=== PATIENT | female | born 1975 | race Two or more races ===

== ENCOUNTER → 2024-06-12 | Outpatient (CLI) | payer MEDICAID, SELFPAY ==
--- NOTE | 2024-06-12 | XR_ITS ---
Examination: Esophagram standard Fluoroscopy Upright PA chest single view Upright soft tissue lateral neck single view 27 spot fluoroscopic films of the esophagus Exam date and time: June 12, 2024 0905 hours INDICATIONS: Difficulty swallowing 2 years TECHNIQUE AND FINDINGS: Upright PA chest single view demonstrates normal heart size, lungs are clear Soft tissue lateral neck demonstrates moderate degenerative disc disease C4-C5, C5-C6 with moderate cervical spondylosis Patient swallowed thin barium with 27 spot fluoroscopic films of the esophagus, fluoroscopy 0.10 minute Primary peristaltic esophageal waves are noted Intermittent gastroesophageal reflux Small sliding esophageal hernia. No constricting esophageal lesion No stricture at the gastroesophageal junction IMPRESSION: Mild intermittent gastroesophageal reflux No stricture at the gastroesophageal junction
== END | disposition home or self-care (01) ==
PROVIDERS: PCP Family Medicine; Referring Provider Otolaryngology; Visit Provider Otolaryngology
DX: K21.9 Gastro-esophageal reflux disease without esophagitis (principal)
CPT/HCPCS: 74220; A4699